=== PATIENT | female | born 1990 | race Caucasian/White ===

== ENCOUNTER 2023-09-29 05:00 | Emergency (ER) | payer OTHER, SELFPAY ==
[2023-09-29 05:02] VITALS: BP 118/80
[2023-09-29] MEDS: LET TOPICAL ANESTHETIC GEL 3 ML TOPICAL (05:15)
--- NOTE | 2023-09-29 05:34 | EDRN ---
Pt has a flap laceration. Bleeding controlled with bandaid. Pt removed piercing.
--- NOTE | 2023-09-29 05:35 | ED.GENMED ---
History of Present Illness
General
Chief Complaint: Skin Surface Trauma
Source: patient
Exam Limitations: none
Time Seen by Provider: 09/29/23 05:21
Nursing documentation reviewed up to this point in time: agreed with
Travel History
Have you had any contact with someone who has COVID-19?: No
Do you have any symptoms of coronavirus? Fever > 100 degrees, chills, cough, shortness of breath, sore throat, loss of taste or smell, muscle aches, or headache?: No
History of Present Illness
History of Present Illness:
This is a 32-year-old woman who has no significant past medical history who states while in the shower this morning she inadvertently got her right nipple bar piercing caught in the shower door with resultant near complete avulsion of the nipple.
She notes mild bleeding around the base of her nipple and moderate local pain. She was able to remove her piercing.
She takes no medicines on a daily basis. Denies risk of .
Past History
Past History
ED Past Medical History: None
ED Past Surgical History: None
Social History
Tobacco: Non-smoker
Personal: Single
Employment: Employed
Family History
Family History: Other (Noncontributory)
Phy Exam
Physical Exam
Physical Exam:
GENERAL: 42-year-old female appears her stated age, bright and alert, pleasant, appears in no acute distress.
EYE: anicteric
NECK: Supple, nontender, no meningismus, no significant adenopathy.
ENT: oral mucosa is moist. No rhinorrhea.
CARDIAC: Regular rate and rhythm. no murmur.
LUNGS: Clear breath sounds bilaterally, no acute respiratory distress, no wheezes/rales/rhonchi. Right breast nipple has a laceration at base extending from superior to medial then inferior aspect with flap type laceration with approximately
three-quarter avulsion at the base of the nipple. The nipple has mild ecchymosis but is not dusky in color. There is no active bleeding from nipple base. Areola and the breast are intact.
ABDOMEN: Soft, nondistended, without focal tenderness
NEUROLOGICAL: Alert and oriented x3, no focal neuro deficits. Gait is castaneda and steady.
SKIN: Warm and dry, normal color, no rash.
MUSCULOSKELETAL: No C/C/E. peripheral pulses are full and equal b/l. No palpable tenderness.
PSYCH: Normal and appropriate interaction.
Course
Orders/Labs/Results
Orders:
Orders
09/29/23 05:00
Lidocaine/Epinephrine/Tetracai [Let Topical Anesthetic Gel] 3 ml TOPICAL NOW STA
09/29/23 05:29
Lidocaine/Epinephrine/Tetracai [Let Topical Anesthetic Gel] 3 ml .ROUTE .STK-MED ONE
09/29/23 07:09
Cephalexin Monohydrate [Keflex] 500 mg PO NOW STA
Vital Signs
Initial and Last Documented VS:
Initial Vital Signs
Temp Pulse Resp BP Pulse Ox
97.8 F 86 18 118/80 100
09/29/23 05:02 09/29/23 05:02 09/29/23 05:02 09/29/23 05:02 09/29/23 05:02
Last Documented Vital Signs
Temp Pulse Resp BP Pulse Ox
97.8 F 86 18 118/80 100
09/29/23 05:02 09/29/23 05:02 09/29/23 05:02 09/29/23 05:02 09/29/23 05:02
Procedures
Laceration Closure
right nipple:
Status of Wound: clean
Size of Wound in cm: 2
Description of Wound Edges: flap-well vascularized
Preparation: cleaned with saline and cleaned with Betadine
Anesthesia: 1% Lidocaine with epi and added Na Bicarb to local
Revision/Debridement: routine- no revision and irrigate-direct pressure
Wound exploration: explored to base- no FB and no tendon involvement
Type of Closure: single layer closure
Skin Closure Material: 4-0 prolene
Number of sutures: 7
MDM/Problems Addressed
Differential Diagnosis Includes:
Patient presents with significant avulsion of nipple right breast. There is at least one quarter intact lateral edge of nipple with excellent blood supply. The nipple itself has focal ecchymosis but currently is not dusky in color.
Nipple avulsion site has been thoroughly irrigated with normal saline solution and will plan for topical anesthesia and then plan to tack the nipple back in place with suture and will reach out to breast surgeon.
*Pulse Oximetry
Patient hypoxic: no
*Critical Care Note
Total Time (30-74mins, 75-104mins- exclusive of procedures): Not Applicable
Update Note
Update Note:
Case initially discussed with breast surgeon, Sheri Bo who recommends touching base with plastic surgeon Gaincarlo Yi. Due to piercing tract epithelialization there is potential concern for cyst development and infection.
Case discussed with Dr. Yi, with patient's approval, [place] text photos shared with plastic surgeon. He agrees that the avulsion appears to be below piercing tract which also corresponds with patient's history that the nipple avulsed
beneath/deeper to the piercing.
He recommends interrupted suture repair with nylon vs prolene with plan for follow up in his office in 1 week for recheck and suture removal.
Nipple sutured in place without difficulty. Patient has been placed on a 1 week course of Keflex for infection prevention, prescription for ibuprofen 600 mg as needed for pain and a few Vicodin for as needed moderate to severe pain.
Wound care discussed.
Return precautions discussed.
ED Attending Note
-
Portions of this chart may have been created with voice recognition software.� Occasional wrong word or��sound alike� substitutions may have occurred due to the inherent limitations of voice recognition software.
Discharge Plan
Departure
Patient Disposition: Home (Routine Discharge)
Date of Disposition: 09/29/23
Time of Disposition: 07:13
Patient with high blood pressure during this ER visit?: No
Condition: Good
Discharge Problem:
right nipple avulsion
Instructions: Laceration Repair With [facility]a (DC)
Prescriptions:
New
cephalexin 500 mg capsule
500 mg PO TID Qty: 20 0RF
ibuprofen 600 mg Tablet
600 mg PO Q6H PRN (Reason: Pain) Qty: 30 0RF
hydrocodone-acetaminophen 5-300 mg tablet
1 tab PO BIDPRN PRN (Reason: Pain) Qty: 6 0RF
Referrals:
NONE,* [Family Provider] -
Nelson Yi MD [Active] - Follow up in 1 week
Interventions
Interventions:
*Risk Screen - Suicide Last Done: 09/29/23 05:02
*General Assessment Last Done: 09/29/23 05:13
*Neglect/Abuse Screening Last Done: 09/29/23 05:02
ED- Fall Risk Assessment Last Done: 09/29/23 05:13
*ED COVID-19 Vaccine History Last Done: 09/29/23 05:13
*Nursing Disposition Last Done: 09/29/23 07:23
ED-Skin Assessment Last Done: 09/29/23 05:13
Discharge Date and Time
Discharge Date/Time: 09/29/23 07:25
Print Language: SLOVENIAN
[2023-09-29 05:38] VITALS: BMI 26.8
[2023-09-29] MEDS: KEFLEX 500 MG PO (07:13)
== END 2023-09-29 07:25 | disposition home or self-care (01) ==
LOC: EMR 05:00
PROVIDERS: EMERGENCY PHYSICIAN Emergency Medicine
DX: S21.001A Unspecified open wound of right breast, initial encounter (principal); X58.XXXA Exposure to other specified factors, initial encounter
CPT/HCPCS: 99283; 12001

== ENCOUNTER 2024-11-28 13:28 | Emergency (ER) | payer OTHER, SELFPAY ==
[2024-11-28 13:30] VITALS: BP 125/81
[2024-11-28 15:04] VITALS: BMI 22.0
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
== END 2024-11-28 16:52 | disposition home or self-care (01) ==
LOC: EMR 13:28
PROVIDERS: EMERGENCY PHYSICIAN Emergency Medicine; FAMILY PHYSICIAN Family Medicine
DX: S01.111A Laceration without foreign body of right eyelid and periocular area, initial encounter (principal); V18.0XXA Pedal cycle driver injured in noncollision transport accident in nontraffic accident, initial encounter; Y93.55 Activity, bike riding
CPT/HCPCS: 99282